=== PATIENT | female | born 1950 | race Caucasian/White ===

== ENCOUNTER 2016-11-26 14:34 | Inpatient (IN) | payer OTHER ==
[~2016-11-26] VITALS: Ht 154.9 cm; Wt 48.7 kg
[~2016-11-26 14:34] MED LIST: CALCIUM 600 +1 EA12 PO; DILAUDID4 MG PO; EFFEXOR75 MG PO; IRON325 MG PO; LIDODERM 5% P1 PATCH TD; LINZESS290 MCG PO; LIVALO4 MG PO; LOVAZA1 GM PO; NEXIUM40 MG PO; PREDNISONE10 MG PO; PROMETHAZINE HC25 M1 PO; RELPAX40 MG PO; TOPAMAX100 MG PO; VALTREX50 MG/ML PO; XANAX0.25 MG PO
[2016-11-26 17:22] LABS: HEMATOCRIT 41.9 % (36.0-46.0); MCH 30.4 PG (29.0-34.0); MCHC 32.7 G/DL (30.0-36.0); MCV 92.9 FL (83-99); RBC DIS.WIDTH-CV 12.7 % (11.8-14.6); RBC DIS.WIDTH-SD 43.6 % (39-53); RED BLOOD COUNT 4.51 M/uL (3.80-5.20); WHITE BLOOD COUNT 6.3 K/uL (4.1-10.2)
[2016-11-26 17:33] LABS: CHLORIDE 106 mEq/L (99-109); POTASSIUM 3.8 mEq/L (3.7-5.4); SODIUM 142 mEq/L (136-147)
[2016-11-26 17:35] LABS: GLUCOSE 79 mg/dL (70-99)
[2016-11-26 17:36] LABS: ANION GAP 9 MEQ/L (2-14)
[2016-11-26 17:38] LABS: SERUM ETHYL ALCOHOL < 10 mg/dL
[2016-11-26 17:39] LABS: GFR ESTIMATE (CALCULATED) > 59 mL/min/; UREA NITROGEN (BUN) 15 mg/dL (9-23)
[2016-11-26 18:00] LABS: MEAN PLAT.VOLUME 11.5 uM^3 (9.5-12.4); PLAT.SUFFICIENCY ADEQUATE; PLATELET COUNT 190 K/uL (156-360)
[2016-11-26] MEDS ORDERED: EFFEXOR XR75 MG PO (20:20)
[2016-11-26] MEDS ORDERED: SYSTANE GEL EYE10 ML BOTH EYES (20:21)
[2016-11-26 20:40] LABS: AMPHETAMINE NEGATIVE (500 ng/mL); BARBITURATES NEGATIVE (200 ng/mL); BENZODIAZEPINES PRESUMPTIVE POSITIVE (150 ng/mL); COCAINE NEGATIVE (150 ng/mL); INTERNAL CONTROLS VALID? YES; METHADONE NEGATIVE (200 ng/mL); METHAMPHETAMINE NEGATIVE (500 ng/mL); OPIATES (MORPHINE) PRESUMPTIVE POSITIVE (100 ng/mL); OXYCODONE NEGATIVE (100 ng/mL); PHENCYCLIDINE NEGATIVE (25 ng/mL); PROPOXYPHENE NEGATIVE (300 ng/mL); THC CANNABINOIDS NEGATIVE (50 ng/mL); TRICYCLIC ANTIDEPRESSANTS NEGATIVE (300 ng/mL)
[2016-11-26 20:41] LABS: ADD MEDTOX COMMENT Y
[2016-11-26 20:59] VITALS: BP 113/67
[2016-11-26 21:06] LABS: BENZODIAZEPINES QUANT VALUE 0 NG/ML
[2016-11-26 21:13] LABS: BENZODIAZEPINES, URINE SCREEN Negative (200 ng/mL)
[2016-11-27 07:30] VITALS: BP 110/61
[2016-11-27 15:46] VITALS: BP 125/82
[2016-11-28 04:27] LABS: POINT-OF-CARE METER ID UU13113830
[2016-11-28 07:55] VITALS: BP 94/53
[2016-11-28 09:13] LABS: POINT-OF-CARE METER ID UU13113830; POINT-OF-CARE USER ID BHSMRC
[2016-11-28 12:12] LABS: POINT-OF-CARE METER ID UU13113830
[2016-11-28 16:01] VITALS: BP 98/55
[2016-11-29 08:05] VITALS: BP 112/66
[2016-11-29 15:40] VITALS: BP 107/56
[2016-11-30 07:56] VITALS: BP 112/62
[2016-11-30 15:47] VITALS: BP 121/64
[2016-12-01 07:31] VITALS: BP 99/56
[2016-12-01 10:30] VITALS: BP 90/50
[2016-12-01 15:33] VITALS: BP 96/59
[2016-12-02 07:42] VITALS: BP 128/73
[2016-12-02 15:31] VITALS: BP 94/55
[2016-12-03 08:01] VITALS: BP 113/72
[2016-12-03] MEDS ORDERED: HYDROMORPHONE HC2 MG PO (09:13)
[2016-12-03] MEDS ORDERED: VENLAFAXINE HC150 M1 PO (09:13)
== END 2016-12-03 13:40 | disposition home or self-care (01) | DRG 885 ==
LOC: EME 14:34 → 1WEST 19:03 → EDOF 19:03 → 1WEST 19:03 → EDOF 19:13 → 1WEST 20:52
PROVIDERS: Emergency Medicine; Psychiatry & Neurology Psychiatry
DX: F33.9 Major depressive disorder, recurrent, unspecified (principal); M54.2 Cervicalgia; T42.6X2A Poisoning by other antiepileptic and sedative-hypnotic drugs, intentional self-harm, initial encounter; R45.851 Suicidal ideations; G47.10 Hypersomnia, unspecified; K21.9 Gastro-esophageal reflux disease without esophagitis; G43.909 Migraine, unspecified, not intractable, without status migrainosus; Z98.1 Arthrodesis status; Z63.0 Problems in relationship with spouse or partner; G89.29 Other chronic pain
CPT/HCPCS: 80048; 82948; 84999; 85027; 90839; 97150 GO; 97166 GO; 99281; 99285; G0480